=== PATIENT | female | born 1945 | race Two or more races ===

== ENCOUNTER → 2019-08-06 | Outpatient (CLI) | payer MEDICARE, MEDICAID ==
--- NOTE | 2019-08-06 16:10 | Diagnostic Imaging Report ---
Indication: Cough Technique: 2 views of the chest Comparison: 07/25/2019 Findings: Stable linear scarring is seen in the right perihilar region and left retrocardiac region. There is a band of atelectasis posteriorly on the lateral view which is not evident previously, side indeterminate. The lungs and pleural spaces are otherwise clear. There is a moderate-sized retrocardiac hiatal hernia again demonstrated. The heart size is normal. Impression: Increased basilar atelectasis since 07/25/2019. Otherwise, no acute process
== END | disposition home or self-care (01) ==
LOC: RAD 15:08
DX: R05 Cough (principal); K44.9 Diaphragmatic hernia without obstruction or gangrene
CPT/HCPCS: 71046